=== PATIENT | female | born 1965 | race African-American/Black ===

== ENCOUNTER 2021-06-21 16:17 | Emergency (ER) | payer OTHER ==
[~2021-06-21] VITALS: Ht 165.1 cm; Wt 102.5 kg
[2021-06-21] MEDS ORDERED: FAMCICLOVIR500 MG PO (17:10)
[2021-06-21] MEDS ORDERED: GABAPENTIN100 M2 PO (17:10)
== END 2021-06-21 17:26 | disposition home or self-care (01) ==
LOC: ER 16:17
DX: B02.9 Zoster without complications (principal)

== ENCOUNTER 2021-08-27 09:35 | Outpatient (CLI) | payer OTHER ==
[~2021-08-27 09:35] MED LIST: FAMCICLOVIR500 MG PO; GABAPENTIN100 M2 PO
== END 2021-08-27 11:22 | disposition home or self-care (01) ==
LOC: SONOGRAMA 09:35 → MAMO-SONO 09:45 → SONOGRAMA 11:22
DX: N84.0 Polyp of corpus uteri (principal)

== ENCOUNTER → 2021-09-05 | Outpatient (CLI) | payer OTHER | END | disposition home or self-care (01) | LOC: MAMO-SONO 12:45 → SONOGRAMA 13:04 | PROVIDERS: ATTEND Physical Medicine & Rehabilitation Pediatric Rehabilitation Medicine | DX: M75.112 Incomplete rotator cuff tear or rupture of left shoulder, not specified as traumatic (principal) ==

== ENCOUNTER 2021-11-08 08:15 | Inpatient (IN) | payer OTHER ==
[2021-11-13] MEDS ORDERED: DICLOFENAC SOD100 GM (11:41)
[2021-11-13] MEDS ORDERED: ZANAFLEX2 MG (11:41)
[2021-11-13] MEDS ORDERED: BETAMETHASONE V15 GM (11:41)
[2021-11-13] MEDS ORDERED: VALACYCLOVIR500 MG (11:41)
[2021-11-15] MEDS ORDERED: SURFAK240 M1 PO (12:16)
[2021-11-15] MEDS ORDERED: PERCOCET 5-3251 EACH PO (12:16)
[2021-11-15] MEDS ORDERED: FERROUS SULFAT325 MG PO (12:16)
== END 2021-11-15 14:52 | disposition home or self-care (01) | DRG 743 ==
LOC: SURH 11-13 08:15 → O/R 11-13 09:02 → OB/GYN 11-13 18:38
PROVIDERS: ADMIT Student in an Organized Health Care Education/Training Program; ATTEND Student in an Organized Health Care Education/Training Program
PROC: 0UJD4ZZ Inspection of Uterus and Cervix, Percutaneous Endoscopic Approach (ICD-10-PCS; 2021-11-13)
PROC: 0UT70ZZ Resection of Bilateral Fallopian Tubes, Open Approach (ICD-10-PCS; 2021-11-13)
PROC: 0UT20ZZ Resection of Bilateral Ovaries, Open Approach (ICD-10-PCS; 2021-11-13)
PROC: 0UT90ZZ Resection of Uterus, Open Approach (ICD-10-PCS; principal; 2021-11-13 08:15)
DX: D25.1 Intramural leiomyoma of uterus (principal); N84.0 Polyp of corpus uteri; N95.0 Postmenopausal bleeding

== ENCOUNTER 2023-01-07 08:51 | Outpatient (CLI) | payer OTHER ==
[~2023-01-07 08:51] MED LIST changes: +BETAMETHASONE V15 GM; +DICLOFENAC SOD100 GM; +FERROUS SULFAT325 MG PO; +PERCOCET 5-3251 EACH PO; +SURFAK240 M1 PO; +VALACYCLOVIR500 MG; +ZANAFLEX2 MG
== END 2023-01-07 08:54 | disposition home or self-care (01) ==
LOC: TOM 08:51
PROVIDERS: ATTEND Internal Medicine Gastroenterology
DX: Z12.11 Encounter for screening for malignant neoplasm of colon (principal); K56.600 Partial intestinal obstruction, unspecified as to cause